=== PATIENT | female | born 1955 | race Caucasian/White ===

== ENCOUNTER 2016-08-25 14:43 | Emergency (ER) | payer BC, OTHER ==
[~2016-08-25] VITALS: Ht 157.5 cm; Wt 61.2 kg
--- NOTE | 2016-08-25 14:51 | ED General ---
General Chief Complaint: Glucose Problems Stated Complaint: CHUCHO FUENTES Source of Information: Patient, EMS History of Present Illness Time Seen by Provider: 14:50 Initial Comments To ER per EMS after coworkers found her to be very jittery and weak feeling. Patient was started on a new insulin about 1-2 months ago which she states "starts with a T". She had her dosage increased last week. She reports generalized shaking that was uncontrollable and a severe sense of anxiety. She has a history of anxiety. Her blood sugar was checked and found to be 83 associates some cookies and drinking Mountain Dew. Upon arrival EMS blood sugar to be 146. 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 She reports that she feels as though her heart is going to beat out of her chest and she feels "hot inside". 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 Timing/Duration: 1-3 Hours Severity: Moderate Allergies and Home Medications Allergies Coded Allergies: Penicillins (Verified Allergy, Unknown, 08/25/16) Sulfa (Sulfonamide Antibiotics) (Verified Allergy, Unknown, 08/25/16) Home Medications [Atenolol] , (Reported) [Insulin] , (Reported) [Metformin] , (Reported) [Simvastatin] , (Reported) Constitutional: see HPI EENTM: see HPI Respiratory: no symptoms reported Cardiovascular: no symptoms reported Genitourinary: no symptoms reported Musculoskeletal: no symptoms reported Skin: no symptoms reported Psychiatric/Neurological: No Symptoms Reported Hematologic/Lymphatic: No Symptoms Reported Physical Exam Vital Signs Vital Sign - Last 12Hours 08/25/16 14:43 Temp 98.0 Pulse 78 Resp 18 B/P (MAP) 143/86 Pulse Ox 98 O2 Delivery Room Air Capillary Refill : General Appearance: No Apparent Distress, WD/WN, Anxious Eyes: Bilateral Eye EOMI, Bilateral Eye Normal Inspection, Bilateral Eye PERRL HEENT: PERRL/EOMI, TMs Normal Neck: Full Range of Motion, Normal Inspection Respiratory: No Accessory Muscle Use, No Respiratory Distress Cardiovascular: Regular Rate, Rhythm, Normal Peripheral Pulses, Other (sinus rhythm at 84 without ectopy) Gastrointestinal: Normal Bowel Sounds, Non Tender, Soft Extremity: Normal Capillary Refill, Normal Inspection Neurologic/Psychiatric: Alert, Oriented x3 Skin: Normal Color, Warm/Dry Progress/Results/Core Measures Results/Orders Lab Results Laboratory Tests Test 08/25/16 15:05 Range/Units White Blood Count 5.6 4.3-11.0 10^3/uL Red Blood Count 4.38 4.35-5.85 10^6/uL Hemoglobin 14.3 11.5-16.0 G/DL Hematocrit 42 35-52 % Mean Corpuscular Volume 95 80-99 FL Mean Corpuscular Hemoglobin 33 25-34 PG Mean Corpuscular Hemoglobin Concent 35 32-36 G/DL Red Cell Distribution Width 12.9 10.0-14.5 % Platelet Count 219 130-400 10^3/uL Mean Platelet Volume 9.7 7.4-10.4 FL Neutrophils (%) (Auto) 64 42-75 % Lymphocytes (%) (Auto) 27 12-44 % Monocytes (%) (Auto) 7 0-12 % Eosinophils (%) (Auto) 1 0-10 % Basophils (%) (Auto) 1 0-10 % Neutrophils # (Auto) 3.6 1.8-7.8 X 10^3 Lymphocytes # (Auto) 1.5 1.0-4.0 X 10^3 Monocytes # (Auto) 0.4 0.0-1.0 X 10^3 Eosinophils # (Auto) 0.1 0.0-0.3 10^3/uL Basophils # (Auto) 0.0 0.0-0.1 10^3/uL Sodium Level 138 135-145 MMOL/L Potassium Level 3.6 3.6-5.0 MMOL/L Chloride Level 107 98-107 MMOL/L Carbon Dioxide Level 18 L 21-32 MMOL/L Anion Gap 13 5-14 MMOL/L Blood Urea Nitrogen 14 7-18 MG/DL Creatinine 0.77 0.60-1.30 MG/DL Estimat Glomerular Filtration Rate > 60 BUN/Creatinine Ratio 18 Glucose Level 134 H 70-105 MG/DL Calcium Level 9.1 8.5-10.1 MG/DL Total Bilirubin 0.4 0.1-1.0 MG/DL Aspartate Amino Transf (AST/SGOT) 20 5-34 U/L Alanine Aminotransferase (ALT/SGPT) 30 0-55 U/L Alkaline Phosphatase 77 40-136 U/L Troponin I < 0.30 <0.30 NG/ML Total Protein 6.7 6.4-8.2 GM/DL Albumin 4.0 3.2-4.5 GM/DL Thyroid Stimulating Hormone (TSH) 0.93 0.35-4.94 UIU/ML Free Thyroxine 0.97 0.70-1.48 NG/DL My Orders Orders - MARY ALICE STEWART APRN Thyroid Stimulating Hormone (08/25/16 14:49) Free T4 (Free Thyroxine) (08/25/16 14:49) Saline Lock/Iv-Start (08/25/16 14:49) Cbc With Automated Diff (08/25/16 14:49) Comprehensive Metabolic Panel (08/25/16 14:49) Ua Culture If Indicated (08/25/16 14:49) Troponin I (08/25/16 14:49) Ekg Tracing (08/25/16 14:49) Lorazepam Injection (Ativan Injection) (08/25/16 15:00) Lorazepam Injection (Ativan Injection) (08/25/16 15:00) Medications Given in ED Current Medications Medications Dose Ordered Sig/Raffy Route Start Time Stop Time Status Last Admin Dose Admin Lorazepam 1 mg ONCE ONCE IVP 08/25/16 15:00 08/25/16 15:01 DC 08/25/16 14:56 1 MG Vital Signs/I&O Vital Sign - Last 12Hours 08/25/16 14:43 Temp 98.0 Pulse 78 Resp 18 B/P (MAP) 143/86 Pulse Ox 98 O2 Delivery Room Air Departure Communication Progress Notes [id number] discussed the results with the patient. She states she is feeling better at this time after Ativan. We will discharge to home. Impression Impression: Primary Impression: Shakiness Additional Impression: Anxiety Disposition: HOME, SELF-CARE Condition: Stable Departure-Patient Inst. Decision time for Depature: 16:33 Patient Instructions: NO INSTRUCTIONS GIVEN Add. Discharge Instructions: 1. Return to ER for any concerns 2. You should reduce her insulin dosing back to 18 units until otherwise directed by your primary care physician All discharge instructions reviewed with patient and/or family. Voiced understanding. MARY ALICE STEWART APRN Aug 25, 2016 14:51
[2016-08-25] MEDS ORDERED: LORazepam INJ 2 MG/ML (ATIVAN) VIAL IVP ONE ×2 (15:00)
[2016-08-25 15:15] LABS: BASOPHILS % (AUTO) 1 % (0-10); EOSINOPHILS # (AUTO) 0.1 10^3/uL (0.0-0.3); EOSINOPHILS % (AUTO) 1 % (0-10); LYMPHOCYTES # (AUTO) 1.5 X 10^3 (1.0-4.0); LYMPHOCYTES % (AUTO) 27 % (12-44); MEAN CORPUSCULAR HEMOGLOBIN 33 PG (25-34); MEAN CORPUSCULAR HGB CONC 35 G/DL (32-36); MEAN CORPUSCULAR VOLUME 95 FL (80-99); MEAN PLATELET VOLUME 9.7 FL (7.4-10.4); MONOCYTES # (AUTO) 0.4 X 10^3 (0.0-1.0); MONOCYTES % (AUTO) 7 % (0-12); NEUTROPHILS # (AUTO) 3.6 X 10^3 (1.8-7.8); NEUTROPHILS % (AUTO) 64 % (42-75); PLATELET COUNT 219 10^3/uL (130-400); RED BLOOD COUNT 4.38 10^6/uL (4.35-5.85); RED CELL DISTRIBUTION WIDTH 12.9 % (10.0-14.5); WHITE BLOOD COUNT 5.6 10^3/uL (4.3-11.0)
[2016-08-25 15:37] LABS: ALANINE AMINOTRANSFERASE 30 U/L (0-55); ANION GAP 13 MMOL/L (5-14); ASPARTATE AMINO TRANSFERASE 20 U/L (5-34); BILIRUBIN,TOTAL 0.4 MG/DL (0.1-1.0); BLOOD UREA NITROGEN 14 MG/DL (7-18); BUN/CREATININE RATIO 18; CALCIUM 9.1 MG/DL (8.5-10.1); CARBON DIOXIDE 18 MMOL/L (21-32); CHLORIDE 107 MMOL/L (98-107); CREATININE SERUM 0.77 MG/DL (0.60-1.30); GFR ESTIMATED > 60; GLUCOSE 134 MG/DL (70-105); POTASSIUM 3.6 MMOL/L (3.6-5.0); SODIUM 138 MMOL/L (135-145); TOTAL PROTEIN 6.7 GM/DL (6.4-8.2)
[2016-08-25] MEDS ORDERED: INSULIN (15:51)
[2016-08-25] MEDS ORDERED: METFORMIN (15:56)
[2016-08-25] MEDS ORDERED: ATENOLOL (15:56)
[2016-08-25 15:57] LABS: THYROID STIMULATING HORMONE 0.93 UIU/ML (0.35-4.94); TROPONIN I < 0.30 NG/ML (<0.30)
[2016-08-25] MEDS ORDERED: SIMVASTATIN (15:57)
[2016-08-25 17:00] VITALS: BP 127/82
== END 2016-08-25 17:00 | disposition home or self-care (01) ==
LOC: ER 14:45
DX: R25.1 Tremor, unspecified (principal); F41.9 Anxiety disorder, unspecified; Z79.4 Long term (current) use of insulin
CPT/HCPCS: 36415; 80053; 82962; 84439; 84443; 84484; 85025; 93005; 96374